=== PATIENT | male | born 1960 | race Caucasian/White ===

== ENCOUNTER → 2023-01-03 | Outpatient (CLI) | payer OTHER, SELFPAY ==
[2023-01-03 10:24] LABS: Absolute Neutrophil Count 5.2 X10^3/uL (2.0-7.7); Basophil# 0.02 X10^3/uL; Basophil% 0.3 % (0-1); Eosinophil# 0.16 X10^3/uL; Eosinophils% 2.1 % (0-5); Hematocrit 45.6 % (40-54); Hemoglobin 15.4 g/dL (13.0-16.5); Mean Corp Hgb Conc 33.8 g/dL (32-36); Mean Corpuscular Hgb 32.8 pg (27.0-32.0); Mean Platelet Vol. 10.6 fl (6.2-12.0); Monocyte# 0.56 X10^3/uL; Monocyte% 7.5 % (0-10); NRBC Flagged by Analyzer 0 % (0-5); Neutrophil # 5.23 X10^3/uL (2.7-7.7); Neutrophil % 69.7 % (47-70); Platelet Count 202 K/mm3 (150-450); RBC Distribution Width CV 11.9 % (11.6-14.6); RBC Distribution Width SD 42.9 fl (35.1-43.9); White Blood Count 7.5 K/mm3 (4.4-11.0)
[2023-01-03 11:25] LABS: ALB/GLOB Ratio 1.1 RATIO (0.9-2.4); AST(SGOT) 19 U/L (15-37); Alanine Aminotransfer ALT/SGPT 33 U/L (16-61); Albumin, Serum 3.6 g/dL (3.2-5.0); Alkaline Phosphatase 52 U/L (45-117); Anion Gap 4 (5-15); BUN 15 mg/dL (7-18); BUN/Creat Ratio 17.9 RATIO (10-20); Chloride 109 mmol/L (98-107); Cholesterol 123 mg/dL (200); Creatinine, Serum 0.84 mg/dL (0.70-1.30); EST Glomerular Filtration Rate 98 mL/min (>60); Est Glom Filt Rate - Afr Amer 119 mL/min (>60); Globulin 3.4 g/dL (2.2-4.2); Glucose 105 mg/dL (74-106); High Density Lipoprotein 54 mg/dL; Potassium 4.1 mmol/L (3.5-5.1); Sodium Level 140 mmol/L (136-145); Triglycerides 47 mg/dL; Very Low Density Lipoprotein 9 mg/dL (5-40)
[2023-01-03 19:36] LABS: Microalbumin,Random Urine 13.3 mg/L (NO RANGE EST.)
== END | disposition home or self-care (01) ==
LOC: MTLAB 07:21
PROVIDERS: PCP Family Medicine; Referring Provider Family Medicine; Visit Provider Family Medicine
DX: I10 Essential (primary) hypertension (principal); E78.00 Pure hypercholesterolemia, unspecified
CPT/HCPCS: 36415; 80053; 80061; 82043; 85025

== ENCOUNTER → 2023-04-23 | Outpatient (CLI) | payer MEDICARE, OTHER, SELFPAY ==
--- NOTE | 2023-04-23 07:43 | CT_ITS ---
EXAM: CT CHEST, LUNG CANCER SCREENING WITHOUT INTRAVENOUS CONTRAST CLINICAL INDICATION: Smoking history along with recent lung nodules seen on CT calcium TECHNIQUE: Helically acquired images were obtained of the chest without intravenous contrast using low dose (LDCT) lung cancer screening protocol. This CT exam was performed using one or more of the following dose reduction techniques: automated exposure control, adjustment of the mA and/or kV according to patient size, and/or use of iterative reconstruction technique. COMPARISON: No relevant prior studies available. FINDINGS: LUNGS AND PLEURAL SPACES: Left upper lobe 3 mm granuloma. No mass. No pleural effusion or thickening. No pneumothorax. HEART: Coronary artery calcifications and/or stents. Heart size is normal. No pericardial effusion. MEDIASTINUM: Small hiatal hernia. No mediastinal or hilar adenopathy. Esophagus is unremarkable. THYROID: No significant abnormality. No thyroid lesions. BONES/JOINTS: No significant abnormality. No suspicious lytic or blastic abnormality. VASCULATURE: See above. LYMPH NODES: No significant abnormality. No enlarged lymph nodes. CT/Low Dose CT Lung Screening IMPRESSION: ACR Lung CT Screening Reporting And Data System (Lung-RADS) score: 1 - Recommend continued annual screening with a low-dose CT (LDCT) in 12 months. Electronically Signed: Hiram Irving DO at 17:35 EDT ,
== END | disposition home or self-care (01) ==
LOC: CT 07:43
PROVIDERS: PCP Family Medicine; Referring Provider Family Medicine; Visit Provider Family Medicine
DX: R91.8 Other nonspecific abnormal finding of lung field (principal); F17.210 Nicotine dependence, cigarettes, uncomplicated
CPT/HCPCS: 71271

== ENCOUNTER → 2023-04-27 | Outpatient (CLI) | payer MEDICARE, OTHER, SELFPAY ==
--- NOTE | 2023-04-27 08:49 | US_ITS ---
INDICATION: abnormal liver mass seen on CT calcium score EXAMINATION: Ultrasound US Abdomen Limited (quadrant) TECHNIQUE: Gil scale and color doppler imaging was performed of the right upper quadrant. COMPARISON: FINDINGS: LIVER: There is fatty infiltration in the liver with areas of fatty sparing. No focal hepatic lesion. There is no free fluid. GALLBLADDER AND BILIARY TREE: No shadowing gallstone, pericholecystic fluid or gallbladder wall thickening is demonstrated. The proximal common bile duct measures 7 cm, which is within normal limits for the patient''s age. Songraphic Cuevas''s sign: Negative. PANCREAS: No focal abnormality is demonstrated in the pancreas. No pancreatic ductal dilatation. US/Abdomen Limited IMPRESSION: Fatty infiltration of the liver with areas of fatty sparing. Otherwise unremarkable ultrasound of the right upper quadrant. Electronically Signed: Jeffrey Narayan MD at 11:56 EDT ,
== END | disposition home or self-care (01) ==
LOC: US 08:48
PROVIDERS: PCP Family Medicine; Referring Provider Family Medicine; Visit Provider Family Medicine
DX: K76.9 Liver disease, unspecified (principal)
CPT/HCPCS: 76705

== ENCOUNTER → 2023-12-30 | Outpatient (CLI) | payer MEDICARE, OTHER, SELFPAY ==
[2023-12-30 11:55] LABS: Microalbumin,Random Urine 12.1 mg/L (NO RANGE EST.); Microalbumin:Creatinine Ratio 4.4 mg/g CRE (<30 mg/g CRE)
[2023-12-31 07:29] LABS: ALB/GLOB Ratio 1.2 RATIO (0.9-2.4); AST(SGOT) 27 U/L (15-37); Alanine Aminotransfer ALT/SGPT 35 U/L (16-61); Alkaline Phosphatase 60 U/L (45-117); Anion Gap 14 (5-15); BUN 10 mg/dL (7-18); BUN/Creat Ratio 12.4 RATIO (10-20); Calcium,Total 9.2 mg/dL (8.5-10.1); Chloride 106 mmol/L (98-107); Cholesterol 113 mg/dL (200); Creatinine, Serum 0.81 mg/dL (0.70-1.30); EST Glomerular Filtration Rate 102 mL/min (>60); Est Glom Filt Rate - Afr Amer 123 mL/min (>60); Globulin 3.3 g/dL (2.2-4.2); Glucose 94 mg/dL (74-106); High Density Lipoprotein 50 mg/dL; PSA,Total - Annual Screen 4.66 ng/mL (0.00-4.00); Potassium 4.3 mmol/L (3.5-5.1); Protein, Total 7.3 g/dL (6.4-8.2); Sodium Level 138 mmol/L (136-145); Triglycerides 105 mg/dL; Very Low Density Lipoprotein 21 mg/dL (5-40)
== END | disposition home or self-care (01) ==
LOC: MFPLAB 08:13
PROVIDERS: PCP Family Medicine; Visit Provider Family Medicine
DX: Z12.5 Encounter for screening for malignant neoplasm of prostate (principal); I10 Essential (primary) hypertension; E78.00 Pure hypercholesterolemia, unspecified
CPT/HCPCS: 36415; 80053; 80061; 82043; 82570; 84153; G0103

== ENCOUNTER → 2024-01-03 | Outpatient (CLI) | payer MEDICARE, OTHER, SELFPAY ==
[2024-01-03 13:19] LABS: PSA,Total- Diagnostic 4.65 ng/mL (0.0-4.0)
== END | disposition home or self-care (01) ==
LOC: MFPLAB 09:47
PROVIDERS: Visit Provider Family Medicine
DX: R97.20 Elevated prostate specific antigen [PSA] (principal)
CPT/HCPCS: 36415; 84153

== ENCOUNTER → 2024-08-24 | Outpatient (CLI) | payer MEDICARE, OTHER, SELFPAY ==
[2024-08-24 12:29] LABS: Absolute Lymphocyte Count 1.66 X10^3/uL (0.83-4.51); Absolute Neutrophil Count 4.2 X10^3/uL (2.0-7.7); Basophil# 0.02 X10^3/uL; Basophil% 0.3 % (0-1); Eosinophil# 0.07 X10^3/uL; Eosinophils% 1.1 % (0-5); Hemoglobin 14.7 g/dL (13.0-16.5); Lymphocyte # 1.66 X10^3/ul (0.83-4.51); Lymphocyte % 25.9 % (19-41); Mean Corp Hgb Conc 34.2 g/dL (32-36); Mean Corpuscular Hgb 32.6 pg (27.0-32.0); Mean Corpuscular Volume 95.3 fL (80-94); Mean Platelet Vol. 11.3 fl (6.2-12.0); Monocyte# 0.48 X10^3/uL; Monocyte% 7.5 % (0-10); NRBC Flagged by Analyzer 0 % (0-5); Neutrophil # 4.15 X10^3/uL (2.7-7.7); Neutrophil % 64.9 % (47-70); Platelet Count 192 K/mm3 (150-450); RBC Distribution Width CV 11.5 % (11.6-14.6); RBC Distribution Width SD 40.2 fl (35.1-43.9); Red Blood Count 4.51 M/mm3 (4.6-6.2); White Blood Count 6.4 K/mm3 (4.4-11.0)
[2024-08-24 13:24] LABS: ALB/GLOB Ratio 1.2 RATIO (0.9-2.4); AST(SGOT) 19 U/L (15-37); Alanine Aminotransfer ALT/SGPT 35 U/L (16-61); Albumin, Serum 3.8 g/dL (3.2-5.0); Alkaline Phosphatase 56 U/L (45-117); Anion Gap 8 (5-15); BUN 11 mg/dL (7-18); BUN/Creat Ratio 15.4 RATIO (10-20); Calcium,Total 9.2 mg/dL (8.5-10.1); Chloride 105 mmol/L (98-107); Cholesterol 88 mg/dL (200); Creatinine, Serum 0.72 mg/dL (0.70-1.30); EST Glomerular Filtration Rate 117 mL/min (>60); Est Glom Filt Rate - Afr Amer 142 mL/min (>60); Globulin 3.3 g/dL (2.2-4.2); Glucose 81 mg/dL (74-106); High Density Lipoprotein 44 mg/dL; Potassium 3.3 mmol/L (3.5-5.1); Protein, Total 7.1 g/dL (6.4-8.2); Sodium Level 137 mmol/L (136-145); Triglycerides 56 mg/dL; Very Low Density Lipoprotein 11 mg/dL (5-40)
== END | disposition home or self-care (01) ==
LOC: MFPLAB 09:22
PROVIDERS: PCP Family Medicine; Referring Provider Family Medicine; Visit Provider Family Medicine
DX: R25.1 Tremor, unspecified (principal); E78.00 Pure hypercholesterolemia, unspecified; I10 Essential (primary) hypertension; R97.20 Elevated prostate specific antigen [PSA]
CPT/HCPCS: 36415; 80053; 80061; 84153; 84443; 85025

== ENCOUNTER → 2024-09-06 | Outpatient (CLI) | payer MEDICARE, OTHER, SELFPAY ==
[2024-09-06 10:32] LABS: Potassium 3.4 mmol/L (3.5-5.1)
== END | disposition home or self-care (01) ==
LOC: MFPLAB 08:55
PROVIDERS: PCP Family Medicine; Referring Provider Family Medicine; Visit Provider Family Medicine
DX: R25.1 Tremor, unspecified (principal)
CPT/HCPCS: 36415; 84132

== ENCOUNTER → 2024-09-12 | Outpatient (CLI) | payer MEDICARE, OTHER, SELFPAY ==
--- NOTE | 2024-09-12 07:23 | US_ITS ---
PROCEDURE: ULTRASOUND ABDOMEN LIMITED REASON FOR EXAM: LIVER LESION. COMPARISON: Ultrasound abdomen limited dated 04/27/2023. FINDINGS: Liver: 15.8 cm sagittally. Hyperechogenic parenchyma. Blood flow: Hepatopetal. Gallbladder: No stones, sludge, wall thickening or tenderness. Common bile duct: Normal measuring 0.39 cm. Pancreas: Visualized portions are sonographically unremarkable. Right kidney: 10.3 x 6.8 x 7.0 cm. Renal cortex 2.2 cm. US/Abdomen Limited IMPRESSION: STEATOSIS. NO LIVER LESIONS ARE IDENTIFIED. Reading Location: [place] [id number]
== END | disposition home or self-care (01) ==
PROVIDERS: PCP Family Medicine; Referring Provider Family Medicine; Visit Provider Family Medicine
DX: K76.9 Liver disease, unspecified (principal); G25.2 Other specified forms of tremor
CPT/HCPCS: 76705

== ENCOUNTER → 2024-10-30 | Outpatient (CLI) | payer MEDICARE, OTHER, SELFPAY ==
--- NOTE | 2024-10-30 07:14 | CT_ITS ---
PROCEDURE: LOW DOSE CT LUNG SCREENING 10/30/2024 REASON FOR EXAM: SMOKER TECHNIQUE: Low Dose CT Lung screening without contrast. Coronal and Sagittal reconstruction series were provided. One or more dose reduction techniques were used (e.g., Automated exposure control, adjustment of the mA and/or kV according to patient size, use of iterative reconstruction technique). REFERENCE LINK: IMAGINATE - [employer] Lung-RADS RADIATION DOSE SUMMARY: CTDlvol: 3.02 mGy DLP: 121.54 mGycm COMPARISON: None. FINDINGS: Note that evaluation of the vasculature, cooper, and soft tissues is limited in the absence of IV contrast. Heart/pericardium:Severe three-vessel coronary atherosclerosis and/or stents. Trace aortic and mild mitral annular calcification. Aorta: Mild calcific atherosclerosis. Pulmonary arteries: Unremarkable. Lymph nodes: Unremarkable. Lungs/pleura: High-density and/or calcified likely granuloma in the posterior subpleural LEFT lung apex. 4 x 4 mm LEFT lower lobe nodule (series 2, image 181). Airways: Unremarkable. Chest wall: Unremarkable. Upper abdomen: Small to moderate hiatal hernia containing mostly fat.. Musculoskeletal: Suspect demineralization. Minimally imaged lower cervical spondylosis.. CT/Low Dose CT Lung Screening IMPRESSION: 1. Lung-RADS category: 2S (benign appearance or behavior, <1% chance of maligna ncy); continue annual screening with LDCT. 2. Other clinically significant or potentially significant non-lung cancer find ings: Severe coronary atherosclerosis and/or stents. 3. Additional description as above. Recommendations per [employer]. Lung CT Screening Reporting and Data System (Lung-RADS) v. 2022 Reading Location: [id number]
== END | disposition home or self-care (01) ==
LOC: CT 07:13
PROVIDERS: PCP Family Medicine; Referring Provider Family Medicine; Visit Provider Family Medicine
DX: F17.210 Nicotine dependence, cigarettes, uncomplicated (principal); K76.9 Liver disease, unspecified; G25.2 Other specified forms of tremor
CPT/HCPCS: 71271

== ENCOUNTER → 2025-03-28 | Outpatient (CLI) | payer MEDICARE, OTHER, SELFPAY ==
[2025-03-29 13:08] LABS: PSA, Free 0.43 ng/mL; PSA, Free % 8.8 % (.); PSA, Total Ultrasensitive 4.860 ng/mL (0.000-4.000)
== END | disposition home or self-care (01) ==
PROVIDERS: PCP Family Medicine; Referring Provider Nurse Practitioner; Visit Provider Nurse Practitioner
DX: R97.20 Elevated prostate specific antigen [PSA] (principal)
CPT/HCPCS: 36415; 84153; 84154

== ENCOUNTER 2025-04-04 09:22 | Emergency (ER) | payer MEDICARE, OTHER, SELFPAY ==
[2025-04-04 09:24] VITALS: BP 167/110; PULSE 73; RESP 14; TEMP 35.7; O2SAT 98; BMI 28.3
--- NOTE | 2025-04-04 09:38 | EDS_ITS ---
HPI History of Present Illness Chief Complaint: Allergic Reaction Informant: patient Onset/Context/Timing Onset: Today Context: Sudden Onset Timing: Continuous Quality: Swelling Location: Left upper and lower lips Worsened by: Eating a sandwich Relieved by: Benadryl Narrative Narrative: Patient presents with left-sided lip swelling that began today. Patient states he woke up and felt fine. Patient states he walked his dog. Patient states he got coffee and a sausage sandwich that he normally gets. Patient states that shortly after eating the sandwich and drinking coffee, his lips started swelling on the left side. Patient states he took some Benadryl at home. Patient states that seems to be helping. Patient denies any difficulty swallowing or difficulty talking. Patient denies any visual changes. Patient states he went to urgent care and then was referred to the emergency department. Prior similar symptoms: No PFSH PFSH Medical History CAD (coronary artery disease) Kidney disease HTN (hypertension) Home Medications ?Medication ?Instructions ?Recorded ?Last Taken ?Type amlodipine 10 mg tablet 10 mg PO QDAY 04/04/25 Unkno wn History olmesartan 40 mg tablet 40 mg PO QDAY 04/04/25 Unkno wn History prednisone 20 mg tablet 60 mg (3 x 20 mg) PO DAILY # 15 04/04/25 Unknown Rx TABLETS rosuvastatin 20 mg tablet 20 mg PO QDAY 04/04/25 Unkno wn History Allergy/AdvReac Type Severity Reaction Status Date / Time No Known Allergies Allergy Verified 04/04/25 09:23 Family History (Updated 04/04/25 @ 08:51 by Elda Christopher) Other Hypertension Surgical History No significant past surgical history Social History (Updated 04/04/25 @ 09:[address] Melvin Sanabria DO) Smoking Status: Current every day smoker tobacco type: cigarettes alcohol intake: current substance use type: marijuana ROS ROS ED Constitutional Constitutional ED: Denies chills or fever(s) Eyes Eyes: Denies blurry vision or change in vision ENT ENT ED: Denies rhinorrhea or sore throat Cardiovascular Cardiovascular: Denies chest pain or palpitations Respiratory/Chest Respiratory/Chest: Denies cough or dyspnea Gastrointestinal Gastrointestinal: Denies nausea or vomiting Genitourinary Genitourinary ED: Denies dysuria or hematuria Musculoskeletal Musculoskeletal: Denies back pain or neck pain Integumentary Reports rash; Denies abscess Neurologic Neurologic: Denies headache(s) or weakness Allergic/Immunologic Allergic/Immunologic ED: Reports mouth swelling; Denies tongue swelling EXAM Physical Exam Const Vital Signs: 04/04/25 09:24 04/04/25 10:33 04/04/25 11:11 Temperature 96.3 F L Temperature Source Temporal Pulse Rate 73 63 67 Respiratory Rate 14 21 H 18 Blood Pressure 167/110 H 161/66 H 159/94 H Blood Pressure Mean 129 97 115 Pulse Ox 98 99 98 Oxygen Delivery Method Room Air Room Air Room Air Positive well nourished and well developed General Appearance ED: well developed and NAD HEENT Reports moist mucous membranes HEENT Narrative: Oropharynx is clear. Airway is patent. There is no oropharyngeal edema. There is edema of the left upper and lower lips. There is no erythema. Neck is supple. Trachea is midline. There is no sublingual edema or evidence of Gulshan's angina. Neck supple and no JVD Resp normal respiratory effort and clear to auscultation bilaterally Cardio regular rate and regular rhythm GI non-tender and non-distended Palpation: soft Extremity normal to inspection General Extremety ED: Negative for edema or tenderness General Extremity: Negative for edema Neuro oriented x3, CN's II-XII intact bilaterally and no sensory deficits noted Sensorium / Orientation: alert Motor Exam: strength 5/5 throughout Psych mental status grossly normal MDM MDM MDM Narrative Medical decision making narrative: Differential diagnose includes angioedema, allergic reaction, electrolyte abnormality, and anxiety. CBC will be obtained to assess for leukocytosis and anemia. Basic metabolic profile will be obtained to assess for electrolyte abnormality and renal function. Lab Data Attestation: I reviewed the patient's lab results. Lab results narrative: CBC was reviewed and was essentially within normal limits. Basic metabolic profile was reviewed and was within normal limits. Labs: Laboratory Results - last 24 hr 04/04/25 10:00 WBC 8.8 RBC 4.26 L Hgb 14.3 Hct 40.9 MCV 96.0 H MCH 33.6 H MCHC 35.0 RDW Std Deviation 42.1 RDW Coeff of Dennis 11.9 Plt Count 181 MPV 10.2 Immature Gran % (Auto) 0.300 Neut % (Auto) 71.8 H Lymph % (Auto) 17.1 L Hettinger % (Auto) 8.1 Eos % (Auto) 2.5 Baso % (Auto) 0.2 Absolute Neuts (auto) 6.3 Absolute Lymphs (auto) 1.50 Nucleated RBC % 0 Sodium 139 Potassium 3.9 Chloride 104 Carbon Dioxide 22.7 Anion Gap 12 BUN 14 Creatinine 0.75 Estim Creat Clear Calc 102.26 Est GFR (MDRD) Non-Af 99 BUN/Creatinine Ratio 18.6 Glucose 88 Calcium 9.2 Treatment and Re-Evaluation :: Patient was given Solu-Medrol and Pepcid. Patient took Benadryl prior to arrival. Patient was feeling better on reevaluation. Medication was shows that the patient is on olmesartan 40 mg daily. Patient does not think that he takes this. Patient states he takes amlodipine and minoxidil for his blood pressure. Case was discussed with Dr. Kraft. He will have the patient stop the olmesartan. He will follow-up with the patient. If his blood pressure is elevated, he will start him on a different medication. Patient was instructed to follow-up in 5 to 7 days. Patient was instructed to return if worse in any way. Patient was given a prescription for short course of prednisone. Patient understood and was agreeable with the plan. All questions were answered. Discharge Plan Triage Chief Complaint: Allergic Reaction ED Provider: Melvin Sanabria Dx/Rx/DC Orders Clinical Impression: Angioedema, Tobacco use, HTN (hypertension) Instructions: ED Angioedema Prescriptions: New prednisone 20 mg tablet 60 mg PO DAILY Qty: 15 0RF No Action amlodipine 10 mg tablet 10 mg PO QDAY olmesartan 40 mg tablet 40 mg PO QDAY rosuvastatin 20 mg tablet 20 mg PO QDAY Primary Care Provider: Bertha Kraft Referrals: Bertha Kraft MD [Primary Care Provider, Family Practice] Activity Restrictions/Additional Instructions: Check your medications at home. If you are on Benicar (olmesartan), do not take this. Follow-up with your primary care physician in 5 to 7 days. If your blood pressure remains elevated, your primary care physician will restart you on a different medication. Print Language: [place] Disposition Disposition: Home, Self Care
[2025-04-04] MEDS: Famotidine 200 MG/20 ML MDV 20 MG in 0.9% Normal Saline (Pres. free 8 ML 300 MG IV (10:05)
[2025-04-04 10:12] LABS: Hematocrit 40.9 % (40-54); Hemoglobin 14.3 g/dL (13.0-16.5); Immature Granulocytes Count 0.030 X10^3/uL (0.0-0.0); Mean Corp Hgb Conc 35.0 g/dL (32-36); Mean Corpuscular Volume 96.0 fL (80-94); Mean Platelet Vol. 10.2 fl (6.2-12.0); NRBC Flagged by Analyzer 0 % (0-5); Platelet Count 181 K/mm3 (150-450); RBC Distribution Width CV 11.9 % (11.6-14.6); RBC Distribution Width SD 42.1 fl (35.1-43.9); Red Blood Count 4.26 M/mm3 (4.6-6.2); White Blood Count 8.8 K/mm3 (4.4-11.0)
[2025-04-04 10:33] VITALS: BP 161/66; PULSE 63; RESP 21; O2SAT 99
[2025-04-04 10:42] LABS: Anion Gap 12 (5-15); BUN 14 mg/dL (4-19); BUN/Creat Ratio 18.6 RATIO (10-20); Calcium,Total 9.2 mg/dL (7.6-11.0); Carbon Dioxide 22.7 mmol/L (21.0-32.0); Chloride 104 mmol/L (98-108); Estimated Creatinine Clearance 102.26 ml/min (50-250); Glucose 88 mg/dL (70-99); Potassium 3.9 mmol/L (3.3-5.1)
[2025-04-04 11:11] VITALS: BP 159/94; PULSE 67; RESP 18; O2SAT 98
[2025-04-04 11:41] VITALS: BP 156/94; PULSE 72; RESP 18; TEMP 36.9; O2SAT 100
== END 2025-04-04 11:50 | disposition home or self-care (01) ==
PROVIDERS: Emergency Provider Emergency Medicine; PCP Family Medicine; Visit Provider Emergency Medicine
DX: T78.3XXA Angioneurotic edema, initial encounter (principal); I25.10 Atherosclerotic heart disease of native coronary artery without angina pectoris; I10 Essential (primary) hypertension; Z79.899 Other long term (current) drug therapy; F17.210 Nicotine dependence, cigarettes, uncomplicated
CPT/HCPCS: 80048; 85025; 96374; 96375; 99282; A4216

== ENCOUNTER → 2025-05-16 | Outpatient (CLI) | payer MEDICARE, OTHER, SELFPAY ==
--- NOTE | 2025-05-16 07:53 | MRI_ITS ---
EXAM: MRI/Pelvis W/WO Contrast
== END | disposition home or self-care (01) ==
LOC: OPMRI 07:51
PROVIDERS: PCP Family Medicine; Referring Provider Urology; Visit Provider Urology
DX: R97.20 Elevated prostate specific antigen [PSA] (principal)
CPT/HCPCS: 72197; A9575; A4216